=== PATIENT | male | born 1960 | race Caucasian/White ===

== ENCOUNTER 2021-10-06 04:19 | Day surgery (SDC) | payer OTHER ==
[2021-10-04 10:47] VITALS: BMI 27.9
[2021-10-06 09:05] VITALS: TEMP 97.6
[2021-10-06 10:49] VITALS: BP 145/61; PULSE 47
== END 2021-10-06 10:37 | disposition home or self-care (01) ==
LOC: JASU-ENDO 04:19
PROVIDERS: ATTEND Internal Medicine Gastroenterology
PROC: 0DJD8ZZ Inspection of Lower Intestinal Tract, Via Natural or Artificial Opening Endoscopic (ICD-10-PCS; principal; 2021-10-06 08:45)
DX: Z12.11 Encounter for screening for malignant neoplasm of colon (principal)